=== PATIENT | male | born 1965 | race African-American/Black ===

== ENCOUNTER 2025-03-04 10:48 | Emergency (ER) | payer OTHER ==
--- NOTE | 2025-03-04 12:31 | ED ---
Psych HPI - General Chief Complaint: Psychiatric Symptoms Stated Complaint: Mental health eval Time Seen by Provider: 03/04/25 12:20 Source: patient, RN notes reviewed Mode of arrival: ambulatory Limitations: no limitations - History of Present Illness Initial Comments: This is a 59-year-old male who presents to the emergency department for mental health evaluation. Patient reports increasing depression for the last few months causing him to be unable to work. States that one of his medical providers sent in a prescription for antidepressants, but he did not fill it. When asked about suicidal ideations, patient is hesitant to answer and states t hat he does not want to be strapped down. However, he is at the point where he feels like he is hopeless and can't continue going on like this. MD Complaint: feels depressed - Related Data Home Medications Medication Instructions Recorded Confirmed Lovastatin [Mevacor] 40 mg PO HS 03/04/25 03/04/25 Metoprolol Tartrate [Lopressor] 100 mg PO BID 03/04/25 03/04/25 Omeprazole [PriLOSEC] 10 mg PO DAILY 03/04/25 03/04/25 RX: Famotidine 40 mg PO DAILY 03/04/25 03/04/25 RX: amLODIPine [Norvasc] 10 mg PO DAILY 03/04/25 03/04/25 RX: lisinopriL 40 mg PO DAILY 03/04/25 03/04/25 Sertraline [Zoloft] 50 mg PO DAILY 03/04/25 03/04/25 Allergies Allergy/AdvReac Type Severity Reaction Status Date / Time No Known Allergies Allergy Verified 03/04/25 13:52 Review of Systems ROS Statement: Those systems with pertinent positive or pertinent negative responses have been documented in the HPI. ROS Other: All systems not noted in ROS Statement are negative. Past Medical History Past Medical History: CVA/TIA, Hypertension History of Any Multi-Drug Resistant Organisms: None Reported Past Surgical History: Joint Replacement Past Psychological History: Anxiety, Depression Smoking Status: Current every day smoker Past Alcohol Use History: None Reported Past Drug Use History: None Reported General Exam Limitations: no limitations General appearance: alert, in no apparent distress Head exam: Present: atraumatic, normocephalic, normal inspection Respiratory exam: Present: normal lung sounds bilaterally. Absent: respiratory distress, wheezes, rales, rhonchi, stridor Cardiovascular Exam: Present: regular rate, normal rhythm Neurological exam: Present: alert, oriented X3, CN II-XII intact Psychiatric exam: Present: depressed, flat affect Skin exam: Present: warm, dry, intact, normal color. Absent: rash Course Vital Signs 03/04/25 03/04/25 03/04/25 10:52 16:03 22:35 Temperature 98.6 F 98.5 F 98.2 F Pulse Rate 83 60 77 Respiratory 18 16 17 Rate Blood Pressure 115/73 165/86 158/80 O2 Sat by Pulse 96 100 100 Oximetry Medical Decision Making - Medical Decision Making This is a 59-year-old male who presents to the emergency department for psychiatric evaluation. Was pt. sent in by a medical professional or institution? @ -No Did you speak to anyone other than the patient for history? @ -No Did you review nursing and triage notes? @ -Yes, and I agree, it is accurate with regards to the patient's symptoms. Were old charts reviewed? @ -No Differential Diagnosis? @ -Differential Mental Health Depression, anxiety, bipolar, psychosis, schizophrenia, borderline personality, situational depression, adjustment disorder, behavioral disorder, brain tumor, malingering, substance abuse, encephalopathy, medication reaction, dementia, hypothyroidism, degenerative neurologic disorder, lupus.... This is not meant to be all-inclusive list EKG interpreted by me (3pts min.)? @ -Not obtained X-rays interpreted by me (1pt min.)? @ -Not obtained CT interpreted by me (1pt min.)? @ -Not obtained. U/S interpreted by me (1pt. min.)? @ -Not obtained What testing was considered but not performed? (CT, X-rays, U/S, labs)? Why? @ -None What meds were considered but not given? Why? @ -None Did you discuss the management of the patient with other professionals? @ -Yes, Katina Lee with EPS, who advised that the patient was very guarded, but admitted to increasing depression with suicidal ideations and meets criteria for inpatient psychiatric hospitalization. Due to insurance he will have to be transferred elsewhere. Did you reconcile home meds? @ -No Was smoking cessation discussed for >3mins.? @ -No Was critical care preformed (if so, how long)? @ -No Were there social determinants of health that impacted care today? How? (Homelessness, low income, unemployed, alcoholism, drug addiction, transportation, low edu. Level, literacy, decrease access to med. care, senior living, rehab)? @ -No Was there de-escalation of care discussed even if they declined? (Discuss DNR or withdrawal of care, Hospice)? @ -No What co-morbidities impacted this encounter? (DM, HTN, Smoking, COPD, CAD, Cancer, CVA, Hep., AIDS, mental health diagnosis, sleep apnea, morbid obesity)? @ -Depression Was patient admitted / discharged? @ -Patient's BAT was 0.0 and he was cleared for EPS evaluation. UDS positive for cocaine and marijuana. UA negative for signs of infection. EPS evaluated the patient and advised that while he was very guarded, he did eventually admit to having suicidal ideations without a specific plan. He was feeling very hopeless and unsure where to go from there. With the active suicidal ideations and increasing depression, he meets criteria for inpatient psychiatric management. However, our facility does not accept his insurance and he will have to be transferred elsewhere. Clinical certification to be completed by ED attending, Dr. Macario. Patient accepted at [facility] the same day and was transferred via EMS in stable condition. Undiagnosed new problem with uncertain prognosis? @ -None Drug Therapy requiring intensive monitoring for toxicity (Heparin, Nitro, Insulin, Cardizem)? @ -None Were any procedures done? @ -None Diagnosis/symptom? @ -Suicidal ideations Acute, or Chronic, or Acute on Chronic? @ -Acute Uncomplicated (without systemic symptoms) or Complicated (systemic symptoms)? @ -Complicated Side effects of treatment? @ -None Exacerbation, Progression, or Severe Exacerbation] @ -Not applicable Poses a threat to life or bodily function? @ -Yes, can lead to - Lab Data Result diagrams: 03/04/25 15:43 03/04/25 15:43 Lab Results 03/04/25 03/04/25 03/04/25 Range/Units 13:32 15:43 15:43 WBC 7.44 (4.50-10.00) 10*3/uL RBC 4.74 (4.40-5.60) 10*6/uL Hgb 14.3 (13.0-17.0) g/dL Hct 41.6 (39.6-50.0) % MCV 87.8 (80.0-97.0) fL MCH 30.2 (27.0-32.0) pg MCHC 34.4 (32.0-37.0) g/dL Plt Count 301 (140-440) 10*3/uL MPV 10.1 (9.5-12.2) fL Immature Gran % (Auto) 0.1 % Neutrophils % 55.6 % Lymphocytes % 35.3 % Monocytes % 8.2 % Eosinophils % 0.5 % Basophils % 0.3 % Immature Gran # 0.01 (0.00-0.04) 10*3/uL Neutrophils # 4.13 (1.80-7.70) 10*3/uL Lymphocytes # 2.63 (0.90-5.00) 10*3/uL Monocytes # 0.61 (0.20-1.00) 10*3/uL Eosinophils # 0.04 (0.04-0.35) 10*3/uL Basophils # 0.02 (0.00-0.10) 10*3/uL Sodium 139 (137-145) mmol/L Potassium 3.6 (3.5-5.1) mmol/L Chloride 100 (98-107) mmol/L Carbon Dioxide 29 (22-30) mmol/L Anion Gap 10 mmol/L BUN 15 (9-20) mg/dL Creatinine 0.86 (0.66-1.25) mg/dL Est GFR (CKD-EPI)AfAm >90 (>60 ml/min/1.73 sqM) Est GFR (CKD-EPI)NonAf >90 (>60 ml/min/1.73 sqM) Glucose 99 (74-99) mg/dL Calcium 9.7 (8.4-10.2) mg/dL Total Bilirubin 0.7 (0.2-1.3) mg/dL AST 20 (17-59) U/L ALT 16 (4-49) U/L Alkaline Phosphatase 59 (38-126) U/L Total Protein 7.4 (6.3-8.2) g/dL Albumin 4.2 (3.5-5.0) g/dL Urine Color Light Yellow Urine Appearance Cloudy (Clear) Urine pH 7.0 (5.0-8.0) Ur Specific [place] 1.014 (1.001-1.035) Urine Protein Negative (Negative) Urine Glucose (UA) Negative (Negative) Urine Ketones Negative (Negative) Urine Blood Negative (Negative) Urine Nitrite Negative (Negative) Urine Bilirubin Negative (Negative) Urine Urobilinogen <2.0 (<2.0) mg/dL Ur Leukocyte Esterase Negative (Negative) Urine RBC 2 (0-5) /hpf Urine WBC 5 (0-5) /hpf Ur Squamous Epith Cells <1 (0-4) /hpf Urine Bacteria Rare H (None) /hpf Hyaline Casts 1 (0-2) /lpf Urine Mucus Many H (None) /hpf Urine Opiates Screen Not Detected (NotDetected) Ur Oxycodone Screen Not Detected (NotDetected) Urine Methadone Screen Not Detected (NotDetected) Ur Barbiturates Screen Not Detected (NotDetected) U Tricyclic Antidepress Not Detected (NotDetected) Ur Phencyclidine Scrn Not Detected (NotDetected) Ur Amphetamines Screen Not Detected (NotDetected) U Methamphetamines Scrn Not Detected (NotDetected) U Benzodiazepines Scrn Not Detected (NotDetected) Urine Cocaine Screen Detected H (NotDetected) U Marijuana (THC) Screen Detected H (NotDetected) Influenza Type A (PCR) (Not Detectd) Influenza Type B (PCR) (Not Detectd) RSV (PCR) (Not Detectd) SARS-CoV-2 (PCR) (Not Detectd) 03/04/25 Range/Units 15:43 WBC (4.50-10.00) 10*3/uL RBC (4.40-5.60) 10*6/uL Hgb (13.0-17.0) g/dL Hct (39.6-50.0) % MCV (80.0-97.0) fL MCH (27.0-32.0) pg MCHC (32.0-37.0) g/dL Plt Count (140-440) 10*3/uL MPV (9.5-12.2) fL Immature Gran % (Auto) % Neutrophils % % Lymphocytes % % Monocytes % % Eosinophils % % Basophils % % Immature Gran # (0.00-0.04) 10*3/uL Neutrophils # (1.80-7.70) 10*3/uL Lymphocytes # (0.90-5.00) 10*3/uL Monocytes # (0.20-1.00) 10*3/uL Eosinophils # (0.04-0.35) 10*3/uL Basophils # (0.00-0.10) 10*3/uL Sodium (137-145) mmol/L Potassium (3.5-5.1) mmol/L Chloride (98-107) mmol/L Carbon Dioxide (22-30) mmol/L Anion Gap mmol/L BUN (9-20) mg/dL Creatinine (0.66-1.25) mg/dL Est GFR (CKD-EPI)AfAm (>60 ml/min/1.73 sqM) Est GFR (CKD-EPI)NonAf (>60 ml/min/1.73 sqM) Glucose (74-99) mg/dL Calcium (8.4-10.2) mg/dL Total Bilirubin (0.2-1.3) mg/dL AST (17-59) U/L ALT (4-49) U/L Alkaline Phosphatase (38-126) U/L Total Protein (6.3-8.2) g/dL Albumin (3.5-5.0) g/dL Urine Color Urine Appearance (Clear) Urine pH (5.0-8.0) Ur Specific [place] (1.001-1.035) Urine Protein (Negative) Urine Glucose (UA) (Negative) Urine Ketones (Negative) Urine Blood (Negative) Urine Nitrite (Negative) Urine Bilirubin (Negative) Urine Urobilinogen (<2.0) mg/dL Ur Leukocyte Esterase (Negative) Urine RBC (0-5) /hpf Urine WBC (0-5) /hpf Ur Squamous Epith Cells (0-4) /hpf Urine Bacteria (None) /hpf Hyaline Casts (0-2) /lpf Urine Mucus (None) /hpf Urine Opiates Screen (NotDetected) Ur Oxycodone Screen (NotDetected) Urine Methadone Screen (NotDetected) Ur Barbiturates Screen (NotDetected) U Tricyclic Antidepress (NotDetected) Ur Phencyclidine Scrn (NotDetected) Ur Amphetamines Screen (NotDetected) U Methamphetamines Scrn (NotDetected) U Benzodiazepines Scrn (NotDetected) Urine Cocaine Screen (NotDetected) U Marijuana (THC) Screen (NotDetected) Influenza Type A (PCR) Not Detected (Not Detectd) Influenza Type B (PCR) Not Detected (Not Detectd) RSV (PCR) Not Detected (Not Detectd) SARS-CoV-2 (PCR) Not Detected (Not Detectd) Disposition Clinical Impression: Suicidal ideations, Depression Disposition: TRANSFER TO PSYCH HOSP/UNIT Referrals: None,Stated [Primary Care Provider] - 1-2 days
[2025-03-04 13:57] LABS: Appearance,Urine Cloudy (Clear); Bacteria,Urine Rare /hpf; Bilirubin,Urine Negative (Negative); Blood,Urine Negative (Negative); Color,Urine Light Yellow; Glucose,Urine (UA) Negative (Negative); Hyaline Casts,Urine 1 /lpf (0-2); Ketones,Urine Negative (Negative); Leukocyte Esterase,Urine Negative (Negative); Mucus,Urine Many /hpf; Nitrite,Urine Negative (Negative); Protein,Urine Negative (Negative); RBC,Urine 2 /hpf (0-5); Specific Gravity,Urine 1.014 (1.001-1.035); Squamous Epithelial Cell,Urine <1 /hpf (0-4); Urobilinogen,Urine <2.0 mg/dL (<2.0); WBC,Urine 5 /hpf (0-5)
[2025-03-04 14:01] LABS: Amphetamine Screen,Urine Not Detected (NotDetected); Barbiturate Screen,Urine Not Detected (NotDetected); Benzodiazepines Screen,Urine Not Detected (NotDetected); Cocaine Screen,Urine Detected (NotDetected); Methadone Screen, Urine Not Detected (NotDetected); Opiate Screen,Urine Not Detected (NotDetected); Oxycodone Screen, Urine Not Detected (NotDetected); Phencyclidine Screen,Urine Not Detected (NotDetected); Tricyclic Antidepressant,Urine Not Detected (NotDetected); Urn Cannabinoid Scrn Detected (NotDetected)
[2025-03-04 16:03] LABS: Basophils # (A) 0.02 10*3/uL (0.00-0.10); Basophils % (A) 0.3 %; Eosinophils # (A) 0.04 10*3/uL (0.04-0.35); Eosinophils % (A) 0.5 %; HCT 41.6 % (39.6-50.0); HGB 14.3 g/dL (13.0-17.0); Lymphocytes # (A) 2.63 10*3/uL (0.90-5.00); Lymphocytes % (A) 35.3 %; MCH 30.2 pg (27.0-32.0); MCHC 34.4 g/dL (32.0-37.0); MCV 87.8 fL (80.0-97.0); Mean Platelet Volume 10.1 fL (9.5-12.2); Monocytes # (A) 0.61 10*3/uL (0.20-1.00); Monocytes % (A) 8.2 %; Neutrophils # (A) 4.13 10*3/uL (1.80-7.70); Neutrophils % (A) 55.6 %; Platelet Count 301 10*3/uL (140-440); RBC 4.74 10*6/uL (4.40-5.60); RDW 13.2 % (11.5-14.5); WBC 7.44 10*3/uL (4.50-10.00)
[2025-03-04 16:15] LABS: African American GFR (CKD) >90 (>60 ml/min/1.73 sqM); Anion Gap 10 mmol/L; Blood Urea Nitrogen 15 mg/dL (9-20); Carbon Dioxide 29 mmol/L (22-30); Chloride 100 mmol/L (98-107); Glucose 99 mg/dL (74-99); Sodium 139 mmol/L (137-145)
[2025-03-04 16:16] LABS: ALT 16 U/L (4-49); Albumin 4.2 g/dL (3.5-5.0); Calcium 9.7 mg/dL (8.4-10.2); Non-African American GFR(CKD) >90 (>60 ml/min/1.73 sqM); Total Bilirubin 0.7 mg/dL (0.2-1.3); Total Protein 7.4 g/dL (6.3-8.2)
[2025-03-04 16:29] LABS: AST 20 U/L (17-59); Alkaline Phosphatase 59 U/L (38-126); Potassium 3.6 mmol/L (3.5-5.1)
[2025-03-04 17:47] LABS: Influenza A Not Detected (Not Detectd); Influenza B Not Detected (Not Detectd); RSV Not Detected (Not Detectd)
[2025-03-04 22:37] VITALS: BP 158/80; PULSE 77; RESP 17; TEMP 98.2
== END 2025-03-04 22:37 ==
LOC: EC 10:48
DX: R45.851 Suicidal ideations (principal); F32.A Depression, unspecified; F17.200 Nicotine dependence, unspecified, uncomplicated
CPT/HCPCS: 36415; 80053; 80306; 81001; 82075; 85025; 87636; 99285